=== PATIENT | male | born 1940 | race Caucasian/White ===

== ENCOUNTER 2016-10-09 07:20 | Day surgery (SDC) | payer MEDICARE ==
--- NOTE | ~2016-10-09 | EGD ---
EGD REPORT [facility] [address] [place]. [id number] NAME: SYEDA BOSCH : [birth year] STATUS : REG [facility]#: [id number] AGE: 76 ADM/REG DATE : 10/09/16 MR#: [id number] REPORT SERV DATE: 10/09/16 DICTATED BY: NIKKI ST DATE: 10/09/16 REPORT STATUS : Draft TRANSCRIBED BY: [facility] DATE: 10/09/16 Endoscopy Center Patient Name: Syeda Bosch Date of : 1940 Attending MD: NIKKI ST MD Procedure Date No Time: 10/09/2016 Procedure: Colonoscopy Indications: High risk colon cancer surveillance: Personal history of colonic polyps Referring MD: OJ MONROY Medicines: as per anesthesia Complications: No immediate complications. Procedure: Pre-Anesthesia Assessment: - ASA Grade Assessment: III - A patient with severe systemic disease. After I obtained informed consent, the scope was passed under direct vision. Throughout the procedure, the patient's blood pressure, pulse, and oxygen saturations were monitored continuously. The PCF [id number] was introduced through the anus and advanced to the ileocolonic anastomosis. The colonoscopy was performed without difficulty. The patient tolerated the procedure. The quality of the bowel preparation was adequate to identify polyps. Findings: The perianal and digital rectal examinations were normal. There was evidence of a prior end-to-side ileo-colonic anastomosis in the transverse colon. This was patent. This was characterized by healthy appearing mucosa. A sessile polyp was found in the descending colon. The polyp was 3 mm in size. The polyp was removed with a cold biopsy forceps. Resection and retrieval were complete. A sessile polyp was found in the transverse colon. The polyp was 5 mm in size. The polyp was removed with a cold biopsy forceps. Resection and retrieval were complete. Internal hemorrhoids were found during endoscopy and were mild. Impression: - Patent end-to-side ileo-colonic anastomosis. - One 3 mm polyp in the descending colon. Resected and retrieved. - One 5 mm polyp in the transverse colon. Resected and retrieved. - Internal hemorrhoids. EGD REPORT [address] [address] NAME: SYEDA BOSCH : [birth year] STATUS : REG [facility] [place] PAT#: [id number] AGE: 76 ADM/REG DATE : 10/09/16 MR#: [id number] REPORT SERV DATE: 10/09/16 DICTATED BY: NIKKI ST. DATE: 10/09/16 REPORT STATUS : Draft TRANSCRIBED BY: [employer] DATE: 10/09/16 Recommendation: - Await pathology results. - Repeat colonoscopy for surveillance based on pathology results. Procedure Code(s): --- Professional --- 88341, Colonoscopy, flexible, proximal to splenic flexure; with biopsy, single or multiple Diagnosis Code(s): --- Professional --- Z98.0, Intestinal bypass and anastomosis status D12.3, Benign neoplasm of transverse colon D12.4, Benign neoplasm of descending colon K64.8, Other hemorrhoids Z86.010, Personal history of colonic polyps CPT copyright 2013 [employer]. All rights reserved. The codes documented in this report are preliminary and upon hooker machine tender review may be revised to meet current compliance requirements. NIKKI ST MD 10/09/2016 9:36 AM This report has been signed electronically. Number of Addenda: 0 Note Initiated On: 10/09/2016 9:04 AM Scope Withdrawal Time 0 hours 10 minutes 12 seconds [id number] [place] [id number]
[~2016-10-09 07:20] MED LIST: ACTOS45 PO; AMARYL4 PO; ASAB PO; ATEN25 PO; CARDU4 PO; FLOMAX4 PO; GLUCOPHAGE1000 MG PO; JANUVIA100 MG PO; ONGLYZA5 MG PO; PERCOCET1 TA2 PO; PROSCAR5 PO
== END 2016-10-09 23:59 | disposition home or self-care (01) ==
LOC: DMU 07:20
PROVIDERS: Internal Medicine Gastroenterology
PROC: 0DBL8ZZ Excision of Transverse Colon, Via Natural or Artificial Opening Endoscopic (ICD-10-PCS; 2016-10-09)
PROC: 0DBM8ZZ Excision of Descending Colon, Via Natural or Artificial Opening Endoscopic (ICD-10-PCS; principal; 2016-10-09 09:00)
DX: Z12.11 Encounter for screening for malignant neoplasm of colon (principal); D12.4 Benign neoplasm of descending colon; D12.3 Benign neoplasm of transverse colon; E11.9 Type 2 diabetes mellitus without complications; K64.9 Unspecified hemorrhoids; I25.10 Atherosclerotic heart disease of native coronary artery without angina pectoris; M19.90 Unspecified osteoarthritis, unspecified site; K64.8 Other hemorrhoids; Z98.0 Intestinal bypass and anastomosis status; Z86.010 Personal history of colon polyps; Z95.5 Presence of coronary angioplasty implant and graft; Z98.41 Cataract extraction status, right eye; Z98.42 Cataract extraction status, left eye; Z96.1 Presence of intraocular lens; Z90.89 Acquired absence of other organs; Z90.49 Acquired absence of other specified parts of digestive tract; Z87.442 Personal history of urinary calculi; Z87.891 Personal history of nicotine dependence; Z79.899 Other long term (current) drug therapy; Z79.82 Long term (current) use of aspirin; Z79.84 Long term (current) use of oral hypoglycemic drugs
CPT/HCPCS: 82962; 88305